=== PATIENT | male | born 1975 | race African-American/Black ===

== ENCOUNTER 2022-07-31 03:57 | Emergency (ER) | payer SELFPAY ==
--- NOTE | 2022-07-31 04:10 | NUR ---
Patient was called to be triaged but did not want to be seen anymore stating "I change my mind. I am ok." Patient left without being triaged or seen by ERMD.
== END 2022-07-31 04:30 | disposition left against medical advice (07) ==
LOC: ER 04:28
DX: Z53.21 Procedure and treatment not carried out due to patient leaving prior to being seen by health care provider (principal)